=== PATIENT | male | born 1955 | race Caucasian/White ===

== ENCOUNTER → 2016-04-27 | Outpatient (CLI) | payer MEDICARE, MEDICAID ==
[~2016-04-27] MED LIST: BACTRIM DS 8001 TAB PO; CEFTIN250 M1 PO; CEFTIN500 MG PO; CELEBREX 200MG200 MG PO; COLACE 100100 MG/CAP PO; DIOVAN HCT 25 M1 TA1 PO; FIORICET 325 MG1 TA1 PO; FOLIC ACID 40400 MCG PO; HALCION0.25 MG PO; IRON TABLETS325 MG PO; LEVAQUIN 5500 MG/TA1 PO; LIORESAL 1010 MG/TAB; LIORESAL 1010 MG/TAB PO; MULTIPLE VITAMI1 CAP PO; PENNSAID 150 M150 ML TP; PRIL40 PO; PROXICAM; ROXICODONE 55 MG/TAB PO; SEE INSTRUCTIONS IT; See instructions IT; VALIUM 10MG10 MG/TAB PO; VALSARTAN; VITAMIN C500 MG PO; XANAX 0.5MG0.5 MG PO
== END ==
LOC: COL.RAD 12:00
DX: N31.2 Flaccid neuropathic bladder, not elsewhere classified (principal)

== ENCOUNTER 2017-08-30 13:55 | Outpatient (CLI) | payer MEDICARE, MEDICAID ==
[2005-10-18 17:15] VITALS: BP 115/64
[~2017-08-30] VITALS: Ht 180.3 cm; Wt 112.0 kg
[~2017-08-30 13:55] MED LIST changes: +DAZIDOX10 MG PO; +LASIX 40MG TABL40 MG PO; +MIRALAX 255 GM255 GM PO
[2017-08-30 14:26] VITALS: BP 125/74; PULSE 78; TEMP 98.1
[2017-08-30] MEDS ORDERED: AMBIEN 10MG10 MG PO (14:44)
[2017-08-30] MEDS ORDERED: SILENOR6 MG PO (14:45)
== END 2017-08-30 15:20 | disposition home or self-care (01) ==
LOC: EUO 13:55
DX: R33.9 Retention of urine, unspecified (principal)

== ENCOUNTER → 2017-12-01 | Outpatient (CLI) | payer MEDICARE, MEDICAID ==
[~2017-12-01] MED LIST changes: +AMBIEN 10MG10 MG PO; +SILENOR6 MG PO
== END ==
LOC: COL.RAD 08:15
DX: N17.9 Acute kidney failure, unspecified (principal)

== ENCOUNTER 2018-01-21 13:14 | Inpatient (IN) | payer MEDICARE, MEDICAID ==
[2018-01-21] VITALS (142 sets, daily range): BP systolic 137–145; BP diastolic 86–88; PULSE 61–65; TEMP 98.2–98.4; O2SAT 92–98
[~2018-01-21] VITALS: Ht 180.3 cm; Wt 123.7 kg
[2018-01-21 14:04] LABS: BASO # 0.1 (0.0-0.2); BASO % 0.7 % (0.0-2.0); EOS # 0.2 (0.0-0.7); EOS % 2.7 % (0-4.0); GRAN # 4.2 (1.4-6.5); GRAN % 59.6 % (42.2-75.2); HEMATOCRIT 51.5 % (42.0-52.0); HEMOGLOBIN 17.2 g/dl (13.5-18.0); LYMPH % 28.3 % (20.0-51.0); MEAN CELL VOLUME 91 fl (80.0-100.0); MEAN CORPUSCULAR HEMOGLOBIN 30 pg (27.0-31.0); MEAN CORPUSCULAR HGB CONC 33 g/dl (33.0-37.0); MEAN PLATELET VOLUME 10.2 fl (7.4-10.4); MONO # 0.6 (0.1-0.6); MONO % 8.6 % (1.7-9.3); PLATELET COUNT 147 K/mm3 (130-400); RED BLOOD COUNT 5.66 M/mm3 (4.20-5.60); REDCELL DISTRIBUTION WIDTH-CV 13.6 % (11.5-14.5)
[2018-01-21 14:18] LABS: ALANINE AMINOTRANSFERASE 48 U/L (21-72); ALBUMIN 4.2 gm/dL (3.5-5.0); ALKALINE PHOSPHATASE 62 U/L (50-136); ANION GAP 5 mmol/L (7-16); AST,SGOT 32 U/L (15-37); BILIRUBIN,TOTAL 0.8 mg/dL (0.0-1.0); BLOOD UREA NITROGEN 25 mg/dL (9-20); CALCIUM 8.9 mg/dL (8.4-10.2); CARBON DIOXIDE 32 mmol/L (22-30); CHLORIDE 103 mmol/L (98-107); CREATININE, serum 1.73 mg/dL (0.66-1.25); GLUCOSE 161 mg/dL (74-106); LIPASE 175 U/L (23-300); POTASSIUM 4.2 mmol/L (3.4-5.0); SODIUM 140 mmol/L (137-145); TOTAL PROTEIN 7.6 gm/dL (6.4-8.2)
[2018-01-21 14:30] LABS: TROPONIN-I < 0.012 ng/mL (0.000-0.034)
[2018-01-21 20:22] LABS: HEMATOCRIT 51.2 % (42.0-52.0); HEMOGLOBIN 17.2 g/dl (13.5-18.0); MEAN CELL VOLUME 91 fl (80.0-100.0); MEAN CORPUSCULAR HEMOGLOBIN 30 pg (27.0-31.0); MEAN CORPUSCULAR HGB CONC 34 g/dl (33.0-37.0); MEAN PLATELET VOLUME 10.3 fl (7.4-10.4); PLATELET COUNT 165 K/mm3 (130-400); RED BLOOD COUNT 5.66 M/mm3 (4.20-5.60); REDCELL DISTRIBUTION WIDTH-CV 13.5 % (11.5-14.5)
[2018-01-21 20:29] LABS: INR 0.9 (0.8-3.0); PROTHROMBIN TIME 9.9 SECONDS (9.7-12.8)
[2018-01-21 21:00] LABS: CREATININE, serum 1.64 mg/dL (0.66-1.25); POTASSIUM 4.1 mmol/L (3.4-5.0)
[2018-01-22] VITALS (628 sets, daily range): BP systolic 110–176; BP diastolic 62–119; PULSE 55–77; TEMP 97.6–98.6; O2SAT 77–100
[2018-01-22 05:47] LABS: ALBUMIN 3.7 gm/dL (3.5-5.0); BILIRUBIN,TOTAL 0.5 mg/dL (0.0-1.0); CALCIUM 8.5 mg/dL (8.4-10.2); CREATININE, serum 1.55 mg/dL (0.66-1.25); TOTAL PROTEIN 6.9 gm/dL (6.4-8.2)
[2018-01-22] MEDS ORDERED: COREG 3.123.125 MG/T PO (15:29)
[2018-01-23] VITALS (241 sets, daily range): BP systolic 131–147; BP diastolic 85–93; PULSE 57–62; TEMP 98.2; O2SAT 83–100
== END 2018-01-23 07:59 | disposition home or self-care (01) | DRG 682 ==
LOC: COL.ER 13:14 → ICU 16:33
PROVIDERS: Emergency Medicine; Internal Medicine; Internal Medicine Interventional Cardiology
PROC: 4A023N7 Measurement of Cardiac Sampling and Pressure, Left Heart, Percutaneous Approach (ICD-10-PCS; principal; 2018-01-22)
PROC: B2111ZZ Fluoroscopy of Multiple Coronary Arteries using Low Osmolar Contrast (ICD-10-PCS; 2018-01-22)
PROC: B2151ZZ Fluoroscopy of Left Heart using Low Osmolar Contrast (ICD-10-PCS; 2018-01-22)
DX: I12.9 Hypertensive chronic kidney disease with stage 1 through stage 4 chronic kidney disease, or unspecified chronic kidney disease (principal); I21.A1 Myocardial infarction type 2; I16.0 Hypertensive urgency; I71.2 Thoracic aortic aneurysm, without rupture; K21.9 Gastro-esophageal reflux disease without esophagitis; G89.29 Other chronic pain; F41.9 Anxiety disorder, unspecified; G47.00 Insomnia, unspecified; I25.10 Atherosclerotic heart disease of native coronary artery without angina pectoris; N18.3 Chronic kidney disease, stage 3 (moderate); Z23 Encounter for immunization; Z91.14 Patient's other noncompliance with medication regimen
CPT/HCPCS: 99223-AI; 99239; J0360; J1644; J2250; J3010; Q9967

== ENCOUNTER → 2018-08-06 | Outpatient (CLI) | payer MEDICARE, MEDICAID ==
[~2018-08-06] MED LIST changes: +COREG 3.123.125 MG/T PO
== END ==
LOC: COL.RAD 10:15
DX: M19.011 Primary osteoarthritis, right shoulder (principal); S43.491A Other sprain of right shoulder joint, initial encounter; M75.81 Other shoulder lesions, right shoulder; Z98.890 Other specified postprocedural states

== ENCOUNTER 2018-09-09 14:07 | Emergency (ER) | payer MEDICARE, MEDICAID ==
[2005-10-18 17:15] VITALS: BP 115/64
[~2018-09-09] VITALS: Ht 180.3 cm; Wt 125.9 kg
[2018-09-09 14:21] VITALS: TEMP 97.8
[2018-09-09] MEDS ORDERED: LOPRESSOR 550 MG/TAB PO (14:56)
[2018-09-09] MEDS ORDERED: NORVASC 10MG10 MG PO (14:56)
[2018-09-09] MEDS ORDERED: TRADJENTA5 MG PO (14:57)
[2018-09-09] MEDS ORDERED: ASPIRIN 81M81 MG/TA2 PO (14:57)
[2018-09-09] MEDS ORDERED: PROTONIX 40MG T40 MG PO (14:58)
[2018-09-09] MEDS ORDERED: MEDROL 4MG DOSPA4 MG PO (16:05)
[2018-09-09 17:25] VITALS: BP 142/75; PULSE 71
== END 2018-09-09 17:25 | disposition home or self-care (01) ==
LOC: COL.ER 14:07
DX: M54.42 Lumbago with sciatica, left side (principal); G89.29 Other chronic pain; I10 Essential (primary) hypertension; Z79.891 Long term (current) use of opiate analgesic; Z79.82 Long term (current) use of aspirin; Z86.79 Personal history of other diseases of the circulatory system
CPT/HCPCS: J1170; J2405; J7512

== ENCOUNTER → 2018-10-12 | Outpatient (CLI) | payer MEDICARE, MEDICAID ==
[~2018-10-12] MED LIST changes: +ASPIRIN 81M81 MG/TA2 PO; +LOPRESSOR 550 MG/TAB PO; +MEDROL 4MG DOSPA4 MG PO; +NORVASC 10MG10 MG PO; +PROTONIX 40MG T40 MG PO; +TRADJENTA5 MG PO
== END ==
LOC: COL.RAD 11:00
DX: Z98.890 Other specified postprocedural states (principal)

== ENCOUNTER → 2018-12-28 | Outpatient (CLI) | payer MEDICARE, MEDICAID | LOC: COL.VAS 09:30 | DX: M79.89 Other specified soft tissue disorders (principal) ==

== ENCOUNTER 2019-02-28 11:44 | Inpatient (IN) | payer MEDICARE, MEDICAID ==
[~2019-02-28] VITALS: Ht 180.3 cm; Wt 113.5 kg
[~2019-02-28 11:44] MED LIST changes: -MIRALAX 255 GM255 GM PO; +MIRALAX PA17 GM/Dose PO
[2019-04-23] VITALS (9 sets, daily range): BP systolic 113–150; BP diastolic 64–98; PULSE 54–72; TEMP 98–98.7
[2019-04-23] MEDS ORDERED: METHADONE H10 MG/TAB PO (10:35)
[2019-04-23] MEDS ORDERED: TOPROL XL 50MG50 MG PO (10:35)
[2019-04-23] MEDS ORDERED: VOLTAREN GEL 1%1 TU TP (10:36)
[2019-04-23] MEDS ORDERED: ZYLOPRIM 100MG100 MG PO (10:37)
[2019-04-23] MEDS ORDERED: LIPITOR20 MG PO (10:37)
[2019-04-23] MEDS ORDERED: MINIPRESS2 MG PO (10:38)
[2019-04-23] MEDS ORDERED: AMBIEN 10MG10 MG PO (10:39)
[2019-04-23] MEDS ORDERED: PROZAC 20MG20 MG PO (10:40)
--- NOTE | 2019-04-23 12:21 | NUR ---
PT TO SURGERY AT THIS TIME.
--- NOTE | 2019-04-23 17:34 | NUR ---
CALLED CONSULT FOR DR. DOWNEY @ 1600 LEFT MESSAGE ON CELL. NO ANSWER AT CLINIC #.
--- NOTE | 2019-04-23 17:36 | NUR ---
PT TO ROOM 342 PER BED WITH REPORT FROM [facility] PACU @ 2700. PT IS A/O X3, LUNGS CLEAR, DRESSING TO RIGHT KNEE CDI WITH OCCLUSIVE WRAP AND CRYO CUFF. HIRAM WRAPS BILATERALLY, IV TO PUMP. PT CANNONT MOVE FEET OR LEGS AT THIS TIME.
--- NOTE | 2019-04-23 22:57 | NUR ---
Pt had done well. alert and oriented with VSS. Pt heart and lung sounds normal. Pt bowel sounds hypoactive x4 quad. has bartholomew in place, draining clear. yellow urine. pt states he straight caths himself at home. pt had RTK done, today. Aquacell dressing in place with cryocuff on. SCDs on. Pedal pulses present. Pt took PM meds well along with PRN pain meds. Dr. Hoskins stated to start with oxy/norco, methadone next, and morphine last. Pt has IV to L hand with d5ns running. Denies needs. Call light within reach, will continue to monitor
--- NOTE | 2019-04-23 23:05 | NUR ---
Pt ambulated in hallway x2 assist about 50 ft. Tolerated well.
[2019-04-24 00:59] VITALS: BP 138/76; PULSE 64; TEMP 97.4
[2019-04-24 03:31] VITALS: BP 122/65; PULSE 62; TEMP 97.7
--- NOTE | 2019-04-24 04:59 | NUR ---
Pt has rested int throughout night. Currently sleeping in bed. Alternating pain meds per PRN orders. Cryocuff to R knee, elevated. Call light within reach, will continue to monitor
--- NOTE | 2019-04-24 07:30 | NUR ---
PT EATING BREAKFAST. PAIN CONTROLLED WITH CURRENT PLAN. PAIN CLINIC TO COME TO DOSE ADJUST IMPLANTED PAIN PUMP THIS AM. REPORT FROM [facility].
[2019-04-24 07:35] LABS: HEMATOCRIT 47.6 % (42.0-52.0); HEMOGLOBIN 15.6 g/dl (13.5-18.0)
[2019-04-24 08:36] VITALS: BP 108/78; PULSE 72; TEMP 98.7
--- NOTE | 2019-04-24 09:43 | NUR ---
PT REPORTING PAIN OF 8/10, AM MEDS GIVEN AND PRN MEDS GIVEN, DR. DOWNEY'S NURSE TO ADJUST PAIN PUMP @1000. PT WORKING WITH OT AT THIS TIME. PT EATING VERY WELL AND NO N/V, REPORTED. DRESSING TO RIGHT KNEE CDI.
[2019-04-24 11:22] VITALS: BP 127/76; PULSE 69; TEMP 98.6
--- NOTE | 2019-04-24 15:37 | NUR ---
SW met with the patient to discuss discharge plan. The patient lives alone in [place]. He states that he has family that lives in [place]. He reports independence with ADLs and has a cane, walker, wheelchair, and crutches. The patient's PCP is Dr. Pino Frederick and he receives his medications at [facility]. He reports no difficulties obtaining his meds. The patient does not have advanced directives in EMR, but he states that he does have them completed and at home. He states that his ex-, Aniyah (ph#[phone]), is his DPOA-HC. The patient plans to return home and receive outpatient therapy at [facility] upon discharge. He states that his son, Robe (ph#[phone]), also plans to stay with him upon discharge. No additional needs at this time.
[2019-04-24 17:26] VITALS: BP 150/80; PULSE 75; TEMP 98.2
[2019-04-24 19:15] VITALS: BP 122/60; PULSE 70; TEMP 98.1
--- NOTE | 2019-04-24 20:23 | NUR ---
Pt doing well. Ambulated in hallway about 200ft, x2 assist. Tolerated well. PRN pain meds given per PRN orders. Dressing to R knee CD&I. Tinajero in place, draining clear yellow urine. Pt denies needs. Call light within reach, will continue to monitor
[2019-04-25 01:03] VITALS: BP 132/73; PULSE 68; TEMP 98.9
[2019-04-25 03:59] VITALS: BP 122/77; PULSE 62; TEMP 98.2
--- NOTE | 2019-04-25 05:01 | NUR ---
Pt ambulated in lopez a few times. Tolerated well. Tinajero in place draining clear, yellow urine. Pain meds given per request/prn orders. Call light within reach, will continue to monitor
--- NOTE | 2019-04-25 10:00 | NUR ---
REMOVED PTS GRACE THIS AM PRIOR TO TAKING SHOWER. PT VOICES HE WAS READY TO TAKE IT OUT SO HE COULD HAVE IT OUT SINCE HE WAS ANTISIPATING DC'ING TODAY
[2019-04-25 11:00] VITALS: BP 136/73; PULSE 62; TEMP 97.8
--- NOTE | 2019-04-25 12:45 | NUR ---
First visit from the compress trucker. No needs right now.
[2019-04-25] MEDS ORDERED: ASPI325T6 PO (13:47)
[2019-04-25] MEDS ORDERED: NORCO 325 MG-7.1 TAB PO (13:48)
--- NOTE | 2019-04-25 14:15 | NUR ---
PT HAS WORKED WITH [facility] THIS DAY. THIS AFTERNOON PT HAD C/O PAIN FROM OVERWORKING IN [facility] WANTED SOME MORPHINE PRIOR TO REMOVING IV "TO TAKE THE EDGE OFF" OF KNEE PAIN. THIS NURSE ADMINISTERED, THEN REMOVED IV. NO ISSUES NOTED FROM REMOVING IV BESIDES C/O REMOVING HAIR FROM TAPED SITE. INFORMED PT THAT DISCHARGE ORDERS WHERE IN AND WE WHERE WORKING ON PAPERWORK. PT GETTING AHOLD OF DAUGHTER FOR RIDE.
--- NOTE | 2019-04-25 15:37 | NUR ---
DRESSING CHANGED ORDERED PER DAY 2 INSTRUCTIONS. PT TOLERATED WELL NO ISSUES NOTED. EDGES APPROXIMATED NO NOTED S/S OF INFECTION TO SUTURED AREA.
--- NOTE | 2019-04-25 15:51 | NUR ---
DISCHARGE EDUCATION PROVIDED TO PT. NO QUESTIONS VOICED. PT DAUGHTER IN TO DRIVE PT HOME. AIDE ESCORTED FAM VIA W/C. THIS NURSE PROVIDED PT WITH A DRESSING AT TO TAKE HOME FOR DRESSING CHANGE IN 7DAYS. ALL DC ORDERS DISCUSSED WITH PT. SCRIPTS COPIED AND SENT WITH PT.
== END 2019-04-25 16:00 | disposition home or self-care (01) | DRG 470 ==
LOC: SURG 04-23 09:13 → JCC 04-23 10:45 → SURG 04-25 16:00
PROVIDERS: ADMIT Orthopaedic Surgery
PROC: 0SRC0J9 Replacement of Right Knee Joint with Synthetic Substitute, Cemented, Open Approach (ICD-10-PCS; principal; 2019-04-24)
DX: M17.11 Unilateral primary osteoarthritis, right knee (principal); M10.9 Gout, unspecified; F32.9 Major depressive disorder, single episode, unspecified; G89.4 Chronic pain syndrome
CPT/HCPCS: A4314; A9284; C1776; J0690; J2250; J2270; J2405; J2704; J3010; J7120

== ENCOUNTER 2019-06-07 14:30 | Outpatient (RCR) | payer MEDICARE, MEDICAID ==
[~2019-06-07 14:30] MED LIST changes: +ASPI325T6 PO; +LIPITOR20 MG PO; +METHADONE H10 MG/TAB PO; +MINIPRESS2 MG PO; +NORCO 325 MG-7.1 TAB PO; +PROZAC 20MG20 MG PO; +TOPROL XL 50MG50 MG PO; +VOLTAREN GEL 1%1 TU TP; +ZYLOPRIM 100MG100 MG PO
== END 2019-07-31 09:19 | disposition home or self-care (01) ==
LOC: WSPT 14:30
DX: M25.561 Pain in right knee (principal); Z96.651 Presence of right artificial knee joint